=== PATIENT | female | born 2005 | race Caucasian/White ===

== ENCOUNTER 2024-06-04 15:00 | Inpatient (IN) | payer OTHER ==
[~2024-06-04] VITALS: Ht 157.5 cm; Wt 97.1 kg
[2024-06-04 15:18] LABS: HEMATOCRIT 29.9 % (35.0-50.0); HEMOGLOBIN 10.1 g/dL (12.0-18.0); MCH 25.9 (27-36); MCHC 33.8 g/dl (30-36); MCV 76.4 fl (81-99); RBC 3.91 M/ul (4.3-5.7); RDW 17.4 (10.5-15.0)
[2024-06-04 15:22] LABS: CREATININE, RANDOM URINE 67.87 mg/dL (NOT ESTABLISHED); PROTEIN/CREATININE RATIO 0.23 mg/mg (0.010-0.107)
[2024-06-04 15:33] LABS: CREATININE, SERUM 0.58 mg/dL (0.55-1.02)
[2024-06-04 17:15] VITALS: BP 136/78
[2024-06-04] MEDS ORDERED: LACTATED RINGER'S 1,000 ML IV PRN (17:30)
[2024-06-04] MEDS ORDERED: miSOPROStoL 25 MCG TAB PV SCH (17:30)
[2024-06-04] MEDS ORDERED: OXYTOCIN/DEXTROSE 5% 20 UNITS/100 ML BAG IV SCH (17:30)
[2024-06-04] MEDS ORDERED: CALCIUM CARBONATE 500 MG CHEW PO PRN (17:30)
[2024-06-04] MEDS ORDERED: MAGNESIUM HYDROXIDE/AL HYDROX 30 ML CUP PO PRN (17:30)
[2024-06-04 17:49] LABS: AMPHETAMINES, URINE NEGATIVE (NEGATIVE); BARBITURATES, URINE NEGATIVE (NEGATIVE); BENZODIAZEPINE, URINE NEGATIVE (NEGATIVE); BUPRENORPHINE, URINE NEGATIVE (NEGATIVE); CANNABINOID, URINE NEGATIVE (NEGATIVE); COCAINE, URINE NEGATIVE (NEGATIVE); ECSTASY, URINE NEGATIVE (NEGATIVE); FENTANYL, URINE NEGATIVE (NEGATIVE); METHADONE, URINE NEGATIVE (NEGATIVE); OPIATES, URINE NEGATIVE (NEGATIVE); OXYCODONE, URINE NEGATIVE (NEGATIVE); PHENCYCLIDINE, URINE NEGATIVE (NEGATIVE)
[2024-06-04 18:31] LABS: ABO A; ANTIBODY SCREEN NEGATIVE; RH POSITIVE
--- NOTE | 2024-06-05 00:52 | PR ---
[facility] [address] [facility] [place], [place] [address] Signed Progress Notes IP Datetime Report Generated by CPN: 06/05/2024 00:52 PROGRESS NOTES: [id number] Impression: Normal Progression of Labor Procedures: Artificial ROM; Sterile Vag Exam Plan: Continue Present Management VITAL SIGNS: [id number] Vital Signs: Reviewed VS Notable Details: occ severe range BPs EXAM: [id number] Dilatation: 4.0 Effacement: 60 Station: -2 Contractions: q 1 to 2 min MEMBRANES: [id number] Comments: Doing well. Will continue. FETUS A: [id number] FHR Baseline: 140 Variability: Moderate 6-25bpm Accelerations: 15X15 Decelerations: None FHR Category: Category I Presentation: Vertex Comments on Fetus A: no evidence of metabolic acidosis FETUS B: [id number] Signing Physician: Emily Walker MD Copies: ~ *Electronically Signed* 06/05/24 005 EMILY WALKER MD PATIENT NAME: VIKRAM FARIAS PROGRESS NOTE DATE OF : 04 PHYSICIAN: EMILY WALKER MD RPT #: [id number] REPORT IS CONFIDENTIAL AND NOT TO BE RELEASED WITHOUT AUTHORIZATION
[2024-06-05] MEDS ORDERED: ROPIVACAINE 0.2% 200 ML BAG EPIDURAL SCH (02:00)
[2024-06-05] MEDS ORDERED: ePHEDrine sulfate 5 MG/ML SYRINGE IV PRN (02:00)
[2024-06-05] MEDS ORDERED: LACTATED RINGER'S 500 ML IV PRN (02:00)
[2024-06-05] MEDS ORDERED: LACTATED RINGER'S 2,000 ML IV ONE (02:00)
[2024-06-05] MEDS ORDERED: fentaNYL citrate 100 MCG/2 ML VIAL ONE (02:51)
[2024-06-05] MEDS ORDERED: TERBUTALINE SULFATE 1 MG/ML AMP SUB-Q ONE (05:30)
--- NOTE | 2024-06-05 07:03 | PR ---
[facility] [address] [facility] [place], [place] [address] Signed Progress Notes IP Datetime Report Generated by CPN: 06/05/2024 07:03 PROGRESS NOTES: [id number] Impression: Reassuring Heart Rate Procedures: Intrauterine Pressure Catheter; Scalp Electrode Plan: Continue Present Management Other Plans: position changes, possible augment VITAL SIGNS: [id number] Vital Signs: Reviewed VS Notable Details: occ severe range BPs EXAM: [id number] Dilatation: 4.0 Effacement: 90 Station: -2 Contractions: q 2 to 3 min MEMBRANES: [id number] Comments: Slow progress. IUPC and FSE placed. Discussed need for position changes and possible need for pit, etc. FETUS A: [id number] FHR Baseline: 140 Variability: Moderate 6-25bpm Accelerations: 15X15 Decelerations: Variable FHR Category: Category II Presentation: Vertex Comments on Fetus A: no evidence of metabolic acidosis FETUS B: [id number] Signing Physician: Emily Walker MD Copies: ~ *Electronically Signed* 06/05/24 07 EMILY WALKER MD PATIENT NAME: VIKRAM FARIAS PROGRESS NOTE DATE OF : 04 PHYSICIAN: EMILY WALKER MD RPT #: [id number] REPORT IS CONFIDENTIAL AND NOT TO BE RELEASED WITHOUT AUTHORIZATION
[2024-06-05] MEDS ORDERED: ondansetron HCL 4 MG/2 ML VIAL IV PRN ×4 (07:15→22:30)
[2024-06-05] MEDS ORDERED: OXYTOCIN/0.9 % SODIUM CHLORIDE 500 ML IV SCH ×2 (09:00→22:30)
[2024-06-05] MEDS ORDERED: ACETAMINOPHEN 325 MG TAB PO PRN (11:15)
[2024-06-05] MEDS ORDERED: BUPIVACAINE HCL 0.25% 10 ML SDV INJ ONE (16:04)
[2024-06-05] MEDS ORDERED: TRANEXAMIC ACID IN NACL,ISO-OS 100 ML IV ONE (16:14)
[2024-06-05] MEDS ORDERED: CEFAZOLIN SODIUM 2 GM/20 ML SYR IV ONE (20:30)
[2024-06-05] MEDS ORDERED: AZITHROMYCIN 500 MG in DEXTROSE 5% 250 ML IV ONE (20:30)
[2024-06-05] MEDS ORDERED: AZITHROMYCIN/DEXTROSE 500 MG/250 ML BAG ONE (20:30)
--- NOTE | 2024-06-05 20:31 | PR ---
[facility] [address] [place], [place] [address] Signed Progress Notes IP Datetime Report Generated by SHERRILL: 06/05/2024 20:31 PROGRESS NOTES: [id number] Impression: Arrest of Dilatation/Descent; Reassuring Heart Rate Other Impressions: induction of labor for severe preeclampsia Procedures: Sterile Vag Exam Plan: Deliver- Section Other Plans: position changes, possible augment Informed Consent Obtain: Section Delivery; Risks, Benefits and Alternatives Discussed VITAL SIGNS: [id number] Vital Signs: Reviewed VS Notable Details: occ severe range BPs EXAM: [id number] Dilatation: 9.0 Effacement: 90 Station: 0 Contractions: q 2 to 3 min MEMBRANES: [id number] Comments: No progress since 1830 w/ continued lip which has become more swollen. Her labor pattern is adequate and I believe this represents CPD and that section indicated. status reassuring. Discussed w/ patient and partner and they agree w/ plan. Will call OR crew and arrange for as soon as can be done. FETUS A: [id number] FHR Baseline: 140 Variability: Moderate 6-25bpm Accelerations: 15X15 Decelerations: None FHR Category: Category I Presentation: Vertex Comments on Fetus A: no evidence of metabolic acidosis FETUS B: [id number] Signing Physician: Emily Walker MD Copies: ~ *Electronically Signed* 06/05/242030 EMILY WALKER MD PATIENT NAME: VIKRAM FARIAS PROGRESS NOTE DATE OF : 04 PHYSICIAN: EMILY WALKER MD RPT #: [id number] REPORT IS CONFIDENTIAL AND NOT TO BE RELEASED WITHOUT AUTHORIZATION
[2024-06-05] MEDS ORDERED: LIDOCAINE 2% W/ EPI 1:200,000 20 ML SDV ONE (20:35)
[2024-06-05] MEDS ORDERED: OXYTOCIN 10 UNITS/ML VIAL ONE (20:54)
[2024-06-05] MEDS ORDERED: ondansetron HCL 4 MG/2 ML VIAL ONE (20:54)
[2024-06-05] MEDS ORDERED: droPERidol 5 MG/2 ML VIAL ONE (20:54)
[2024-06-05] MEDS ORDERED: ePHEDrine sulfate 50 MG/ML AMP ONE (21:04)
[2024-06-05] MEDS ORDERED: MORPHINE SULFATE 1 MG/ML VIAL ONE (21:05)
[2024-06-05] MEDS ORDERED: Ropivacaine HCl 0.5% 30 ML VIAL ONE (21:06)
[2024-06-05] MEDS ORDERED: SODIUM CHLORIDE 0.9% 40 ML IV ONE (21:06)
[2024-06-05] MEDS ORDERED: dexmedeTOMIDine HCl 200 MCG/2 ML VIAL ONE (21:14)
[2024-06-05] MEDS ORDERED: LACTATED RINGER'S 1,000 ML IV ONE ×3 (21:20)
[2024-06-05] MEDS ORDERED: KETOROLAC TROMETHAMINE 30 MG/ML VIAL ONE (21:25)
[2024-06-05] MEDS ORDERED: MORPHINE SULFATE 4 MG/ML VIAL IV PRN (21:45)
[2024-06-05] MEDS ORDERED: MORPHINE SULFATE 10 MG/ML VIAL IV PRN (21:45)
[2024-06-05] MEDS ORDERED: IBLOOD GLUCOSE TEST STRIP 1 EA TEST VI PRN (21:45)
[2024-06-05] MEDS ORDERED: METOCLOPRAMIDE HCL 10 MG/2 ML SDV IV PRN ×3 (21:45→22:30)
[2024-06-05] MEDS ORDERED: NALOXONE HCL 0.4 MG SYR IV PRN ×2 (21:45)
[2024-06-05] MEDS ORDERED: fentaNYL citrate 50 MCG/ML SDV IV PRN (21:45)
[2024-06-05] MEDS ORDERED: diphenhydrAMINE HCL 25 MG CAP PO PRN (21:45)
[2024-06-05] MEDS ORDERED: diphenhydrAMINE HCL 50 MG/ML VIAL IV PRN (21:45)
[2024-06-05] MEDS ORDERED: droPERidol 5 MG/2 ML VIAL IV PRN (21:45)
[2024-06-05] MEDS ORDERED: PROCHLORPERAZINE EDISYLATE 10 MG/2 ML VIAL IV PRN ×3 (21:45→22:30)
[2024-06-05] MEDS ORDERED: LACTATED RINGER'S 1,000 ML IV SCH (22:22)
[2024-06-05] MEDS ORDERED: bisacodyL 10 MG SUPP PR PRN (22:30)
[2024-06-05] MEDS ORDERED: LIDOCAINE 2% VISCOUS 6 ML SYR TOP ONE (22:30)
[2024-06-05] MEDS ORDERED: OXYCODONE HCL 5 MG TAB PO PRN (22:30)
[2024-06-05] MEDS ORDERED: PROMETHAZINE HCL 25 MG TAB PO PRN (22:30)
[2024-06-05] MEDS ORDERED: PROMETHAZINE HCL 25 MG SUPP PR PRN (22:30)
[2024-06-05 22:49] VITALS: BP 120/65
--- NOTE | 2024-06-05 23:14 | NUR ---
06/05/24 2314 Torres,Emily Minaya 2221: PATIENT ARRIVED TO RECOVERY IN [facility] ROOM 101. PATIENT ON ROOM AIR. AWAKE. DENIES PAIN. PATIENT HAD EPISODE OF EMESIS ON ROUTE FROM OR TO [facility] ROOM. 2235: [facility] RN ASSISTING PATIENT TO BREASFEED. [facility] RN HOLDING BABY TO MOM'S BREAST. IN TO SPEAK WITH PATIENT AND FAMILY. UPDATED ON PATIENT STATUS. PATIENT DROWSY. AWAKENS TO VOICE. FALLS BACK TO SLEEP QUICKLY. 2245: PATIENT CONTINUES TO BE DROWSY. SLEEPING. [facility] STILL ASSISTING MOM TO BREASTFEED, HOLDING BABY. O2 SATS DOWN TO 88% ON ROOM AIR. PATIENT PLACED ON 2 L/MIN O2 VIA NC. O2 SAT QUICKLY INCREASED TO 95%. O2 TITRATED DOWN TO 1 L/MIN VIA NC. 2256: REPORT GIVEN TO [facility] RN.
[2024-06-05] MEDS ORDERED: ACETAMINOPHEN 500 MG TAB PO SCH (23:55)
[2024-06-06] MEDS ORDERED: KETOROLAC TROMETHAMINE 30 MG/ML VIAL IV SCH (03:00)
[2024-06-06] MEDS ORDERED: IBUPROFEN 800 MG TAB PO SCH (03:00)
[2024-06-06 05:28] LABS: HEMATOCRIT 23.4 % (35.0-50.0); HEMOGLOBIN 7.7 g/dL (12.0-18.0); MCH 25.6 (27-36); MCV 77.6 fl (81-99); RBC 3.01 M/ul (4.3-5.7); RDW 17.1 (10.5-15.0)
[2024-06-06] MEDS ORDERED: SIMETHICONE 125 MG TABLET CHEWABLE PO SCH (07:00)
--- NOTE | 2024-06-06 08:50 | PR ---
[facility] [address] [place], [place] [address] Signed Progress Notes IP Datetime Report Generated by SHERRILL: 06/06/2024 08:50 PROGRESS NOTES: [id number] Impression: Gest. HTN/PreEclampsia/Eclampsia Other Impressions: induction of labor for severe preeclampsia Procedures: Sterile Vag Exam Plan: Deliver- Section Other Plans: s/p c section for deep transverse arrest (Annotations: Data stored by SHERRILL on behalf of user) Informed Consent Obtain: Section Delivery; Risks, Benefits and Alternatives Discussed VITAL SIGNS: [id number] Vital Signs: Reviewed VS Notable Details: occ severe range BPs EXAM: [id number] Dilatation: 9.0 Effacement: 90 Station: 0 Contractions: q 2 to 3 min MEMBRANES: [id number] Comments: Vikram is post op day 1 today from primary LTCS for deep transverse arrest last night, and mild pre-E. She reports good pain control, no flatus yet, some nausea, no dizziness, and feels tired. Has had baby to breast when possible but not during periods of nausea. Reports some lochia but no clots. VSS, Tm 99.4 BPs 113 to 130/53 to 74, HR 90s to 113 02 sat 97 I/Os 3000 net Exam: appears pale, A and O CV: rrr no g/m/r Lungs: CTA Abd: FF 2 FT below umbilicus : no clots, scant lochia EXt: no pedal edema, no clonus AM labs: CR .58 WBC 15 HCT 23.4 Plt 170 A/P: *Electronically Signed* 06/06/24 0850 EMILY WALKER MD PATIENT NAME: VIKRAM FARIAS PROGRESS NOTE DATE OF : 04 PHYSICIAN: EMILY WALKER MD RPT #: [id number] REPORT IS CONFIDENTIAL AND NOT TO BE RELEASED WITHOUT AUTHORIZATION [facility] [address] [place], [place] [address] Signed PoD #1 primary LTCS for deep transverese arrest, doing well Anemia 23.4, was admitted with HCT 29, so preexisting, mild tachycarida and appears pale. observation to see if tolerates this HCT. d/w patient if HCT decreases with equilibration and symptomatic may offer transfusion. Pre-E, mild, Bps improved this am, observe Pain control is good. Leggett dc later this evening if progresses well and able to ambulate. Diet: regular advance as tolerated, given nausea, will advance slowly this am. FETUS A: [id number] FHR Baseline: 140 Variability: Moderate 6-25bpm Accelerations: 15X15 Decelerations: None FHR Category: Category I Presentation: Vertex Comments on Fetus A: no evidence of metabolic acidosis FETUS B: [id number] Signing Physician: Emily Walker MD Copies: ~ *Electronically Signed* 06/06/24 0850 EMILY WALKER MD PATIENT NAME: VIKRAM FARIAS PROGRESS NOTE DATE OF : 04 PHYSICIAN: EMILY WALKER MD RPT #: [id number] REPORT IS CONFIDENTIAL AND NOT TO BE RELEASED WITHOUT AUTHORIZATION
[2024-06-06] MEDS ORDERED: SENNOSIDES/DOCUSATE 1 EA TAB PO SCH (09:00)
[2024-06-06] MEDS ORDERED: ENOXAPARIN SODIUM 40 MG/0.4 ML SYR SUB-Q SCH (09:00)
--- NOTE | 2024-06-09 15:35 | OR ---
[facility] [address] [place], [place] [address] Signed DATE OF OPERATION: 06/05/2024 SURGEON: Emily Walker MD MEDICAL ADMINISTRATIVE: Taylor Muñoz MD PREOPERATIVE DIAGNOSIS: Term , preeclampsia without severe features, secondary arrest of dilation. POSTOPERATIVE DIAGNOSIS: Term , preeclampsia without severe features, secondary arrest of dilation with deep transverse arrest. PROCEDURE: Primary section, low segment transverse uterine incision. ANESTHESIA: Epidural. ESTIMATED BLOOD LOSS: 700 mL. DRAINS: Leggett catheter. INDICATIONS AND FINDINGS: The patient is a 18-year-old female, 1, para 0, admitted at 37 and 2/7th weeks for induction secondary to preeclampsia without severe features. She was admitted and underwent a Cytotec induction. Artificial rupture of membranes was carried out and Pitocin augmentation was eventually begun for poor progress. She progressed in her labor to approximately 9, but failed to completely dilate over the course of several hours despite an adequate labor pattern with internal monitors. The cervix was becoming more and more swollen. Because of this, it was felt that was indicated. She was taken to the operating room after appropriate counseling and was delivered of a little boy as a deep transverse arrest--ROT position--via lower segment transverse uterine incision with Apgars of 7 and 8 and weight of 6 pounds 12 ounces. There was a small extension of the incision on the patient's left, but otherwise the uterus, tubes, ovaries, and placenta appeared normal. Electronically Signed By: EMILY WALKER MD 06/09/24 1535 PATIENT NAME: VIKRAM FARIAS OPERATIVE REPORT DATE OF : 04 REPORT #: [id number] PHYSICIAN: EMILY WALKER MD PCP: NO PRIMARY CARE PHYSICIAN REPORT IS CONFIDENTIAL AND NOT TO BE RELEASED WITHOUT AUTHORIZATION [facility] [address] [place], [place] [address] Signed DESCRIPTION OF PROCEDURE: The patient was prepped and draped in the supine position. A Pfannenstiel skin incision was made, carried down through the fascia and extended laterally. The inferior and superior fascial flaps were created. The muscles were bluntly divided and the peritoneum opened bluntly. The incision was extended bluntly. The Chavo retractor was then placed. The uterine incision was made at the upper aspect of the peritoneal reflection and extended bluntly. The baby was delivered with some difficulty, given its deep transverse position, but was delivered and handed off to the pediatric staff in attendance. The placenta was expressed and the uterus explored with a lap tape assuring no remaining fragments. The edges of the incision were identified and the small left extension was identified and noted. The uterus was then closed in 2 layers using 0 Monocryl. The first layer was a running locking stitch and 2nd was a vertical imbricating stitch. An O'Torrance stitch was placed on the patient's left side for additional control of bleeding. The abdomen was then copiously irrigated, inspected and bleeding points on the peritoneal edges were controlled with cautery. The uterine incision did appear completely dry after evaluation. Because of the difficulty, however, Skylar was also placed over the uterine incision to further aid in hemostasis. The Chavo retractor was removed. The peritoneum identified and closed with a running suture of 3-0 Vicryl. The muscles were brought together with interrupted sutures of 0 Vicryl. Bleeding points were controlled on the muscles with cautery as well as on the subfascial spaces. This layer was irrigated, inspected and good hemostasis was noted. The remaining Skylar was placed over the muscles to further aid in hemostasis. The fascia was then closed from each angle to the midline with a running suture of 0 Vicryl. The subcu space was irrigated, inspected and bleeding points controlled with cautery. Interrupted sutures of 3-0 Vicryl were used to close the space. The skin was closed with taurus. All sponge and needle counts were correct. She tolerated the procedure well and was taken to the recovery room in good condition. Emily Walker MD PJW/MODL /[id number] Electronically Signed By: EMILY WALKER MD 06/09/24 1535 PATIENT NAME: VIKRAM FARIAS OPERATIVE REPORT DATE OF : 04 REPORT #: [id number] PHYSICIAN: EMILY WALKER MD PCP: NO PRIMARY CARE PHYSICIAN REPORT IS CONFIDENTIAL AND NOT TO BE RELEASED WITHOUT AUTHORIZATION [address] [address] Signed Copies: ~ Electronically Signed By: EMILY WALKER MD 06/09/24 1535 PATIENT NAME: VIKRAM FARIAS SUMEET OPERATIVE REPORT DATE OF : 04 REPORT #: [id number] PHYSICIAN: EMILY WALKER MD PCP: NO PRIMARY CARE PHYSICIAN REPORT IS CONFIDENTIAL AND NOT TO BE RELEASED WITHOUT AUTHORIZATION
== END 2024-06-08 09:55 | disposition home or self-care (01) | DRG 788 ==
LOC: LAB 15:00 → FBCO 15:00 → FBC 16:45
PROVIDERS: ADMIT Obstetrics & Gynecology; ATTEND Obstetrics & Gynecology
PROC: 3E0P7VZ Introduction of Hormone into Female Reproductive, Via Natural or Artificial Opening (ICD-10-PCS; 2024-06-04)
PROC: 10907ZC Drainage of Amniotic Fluid, Therapeutic from Products of Conception, Via Natural or Artificial Opening (ICD-10-PCS; 2024-06-05)
PROC: 4A1H7CZ Monitoring of Products of Conception, Cardiac Rate, Via Natural or Artificial Opening (ICD-10-PCS; 2024-06-05)
PROC: 10H073Z Insertion of Monitoring Electrode into Products of Conception, Via Natural or Artificial Opening (ICD-10-PCS; 2024-06-05)
PROC: 10H07YZ Insertion of Other Device into Products of Conception, Via Natural or Artificial Opening (ICD-10-PCS; 2024-06-05)
PROC: 10D00Z1 Extraction of Products of Conception, Low, Open Approach (ICD-10-PCS; principal; 2024-06-05 21:00)
DX: O14.14 Severe pre-eclampsia complicating childbirth (principal); Z37.0 Single live birth; Z3A.37 37 weeks gestation of pregnancy; O62.1 Secondary uterine inertia
CPT/HCPCS: 01961; 36415; 80307; 82565; 82570; 84156; 84450; 84520; 84550; 85027; 86850; 86900; 86901; A9270; J0456; J0690; J1200; J1650; J1790; J1885; J2274; J2405; J2590; J2795; J3105; J7121